=== PATIENT | male | born 1995 | race Caucasian/White ===

== ENCOUNTER 2018-02-09 11:43 | Emergency (ER) | payer OTHER ==
[2018-02-09 12:11] LABS: PLATELET COUNT 186 10^3/uL (150-400)
--- NOTE | 2018-02-09 13:05 | EDPHY ---
H & P Stated Complaint: M1 Time Seen by Provider: 02/09/18 12:56 HPI/ROS: CHIEF COMPLAINT: Depression HISTORY OF PRESENT ILLNESS: Patient is a 22-year-old man who according to the record has a history of schizophrenia but he denies this. He takes Zyprexa and ketamine he reports for depression. He texted some friends earlier today stating that he was going to "end it all" and the "where he was going they could not follow". He did not attempt any thing to harm himself. He tells me now that he is no longer feeling suicidal but he does feel depressed. He also was concerned about animals he has at home and wants to take care of. Denies any recent illness or injury. He is brought in by police and placed on an M1 hold. He tells me that he smokes some marijuana today but no other co ingestants. Severity: Moderate Modifying factors: None REVIEW OF SYSTEMS: Constitutional: denies: chills, fever, recent illness, recent injury EENTM: denies: blurred vision, double vision, nose congestion Respiratory: denies: cough, shortness of breath Cardiac: denies: chest pain, irregular heart rate, lightheadedness, palpitations Gastrointestinal/Abdominal: denies: abdominal pain, diarrhea, nausea, vomiting, blood streaked stools Genitourinary: denies: dysuria, frequency, hematuria, pain Musculoskeletal: denies: joint pain, muscle pain Skin: denies: lesions, rash, jaundice, bruising Neurological: denies: headache, numbness, paresthesia, tingling, dizziness, weakness Hematologic/Lymphatic: denies: blood clots, easy bleeding, easy bruising Immunologic/allergic: denies: HIV/AIDS, transplant 10 systems reviewed and negative except as noted EXAM: GENERAL: Well-appearing, well-nourished and in no acute distress. HEAD: Atraumatic, normocephalic. EYES: Pupils equal round and reactive to light, extraocular movements intact, sclera anicteric, conjunctiva are normal. ENT: TMs normal, nares patent, oropharynx clear without exudates. Moist mucous membranes. NECK: Normal range of motion, supple without lymphadenopathy or JVD. LUNGS: Breath sounds clear to auscultation bilaterally and equal. No wheezes rales or rhonchi. HEART: Regular rate and rhythm without murmurs, rubs or gallops. ABDOMEN: Soft, nontender, normoactive bowel sounds. No guarding, no rebound. No masses appreciated. BACK: No CVA tenderness, no spinal tenderness, step-offs or deformities EXTREMITIES: Normal range of motion, no pitting or edema. No clubbing or cyanosis. NEUROLOGICAL: Cranial nerves II through XII grossly intact. Normal speech, normal gait. 5/5 strength, normal movement in all extremities, normal sensation , normal reflexes PSYCH: Normal mood, normal affect. SKIN: Warm, dry, normal turgor, no visible rashes or lesions. Source: Patient - Personal History Current Tetanus/Diphtheria Vaccine: Unsure Current Tetanus Diphtheria and Acellular Pertussis (TDAP): Unsure - Medical/Surgical History Hx Asthma: No Hx Chronic Respiratory Disease: No Hx Diabetes: No Hx Cardiac Disease: No Hx Renal Disease: No Hx Cirrhosis: No Hx Alcoholism: No Hx HIV/AIDS: No Hx Splenectomy or Spleen Trauma: No Other PMH: SCHIZOAFFECTIVE, FRACTURE R ARM, DENSON LEGS. ADHD - Family History Significant Family History: No pertinent family hx - Social History Smoking Status: Heavy smoker Alcohol Use: Sober Drug Use: None Constitutional: Initial Vital Signs Temperature (C) 36.8 C 02/09/18 11:45 Heart Rate 73 02/09/18 11:45 Respiratory Rate 16 02/09/18 11:45 Blood Pressure 127/79 H 02/09/18 11:45 O2 Sat (%) 98 02/09/18 11:45 O2 Delivery Mode Room Air Allergies/Adverse Reactions: No Known Allergies Allergy (Verified 01/02/16 17:02) Home Medications: Medication Instructions Recorded Ekron Carbonate ER [Lithobid 300 600 mg PO DAILY #0 tab 10/08/15 mg (*)] OLANZapine DISINTEGR [ZyPREXA 5 mg PO HS #0 tab 10/08/15 ZYDIS (*)] buPROPion XL [Wellbutrin 150mg XL] 300 mg PO DAILY #0 tab 10/08/15 Disulfiram [Antabuse 250 MG (*)] 250 mg PO MWF@09 #15 tab 01/05/16 Ekron Carbonate [Ekron 600 mg PO DAILY #30 cap 01/05/16 Carbonate 600 mg cap (*)] OLANZapine DISINTEGR [ZyPREXA 5 mg PO HS #30 tab 01/05/16 ZYDIS (*)] buPROPion XL [Wellbutrin 150mg XL] 300 mg PO DAILY #30 tab 01/05/16 Medical Decision Making ED Course/Re-evaluation: The patient is no longer suicidal. Is not intoxicated. He would like to talk to mental health workers. Indication became somewhat agitated and tried to break a urine cup and cut himself. We were able to calm him down verbally. Will give him a small dose of Zyprexa. 4:45 p.m. the patient has been accepted at [facility] by Dr. Ramirez. Transfer paperwork completed. Differential Diagnosis: Partial list of the Differential diagnosis considered include but were not limited to; schizophrenia, depression, suicidality and although unlikely based on the history and physical exam, I also considered infection, head injury, substance abuse. I discussed these differential diagnoses and the plan with the patient as well as the usual and expected course. The patient understands that the diagnosis is provisional and that in medicine we are not always correct and that further workup is often warranted. Usual and customary warnings were given. All of the patient's questions were answered. The patient was instructed to return to the emergency department should the symptoms at all worsen or return, otherwise to followup with the physician as we discussed. - Data Points Laboratory Results: Laboratory Results 02/09/18 12:00 02/09/18 12:00 02/09/18 02/09/18 02/09/18 13:52 12:00 12:00 WBC 5.61 10^3/uL 10^3/uL (3.80-9.50) RBC 5.31 10^6/uL 10^6/uL (4.40-6.38) Hgb 16.2 g/dL g/dL (13.7-17.5) Hct 46.1 % % (40.0-51.0) MCV 86.8 fL fL (81.5-99.8) MCH 30.5 pg pg (27.9-34.1) MCHC 35.1 g/dL g/dL (32.4-36.7) RDW 11.9 % % (11.5-15.2) Plt Count 186 10^3/uL 10^3/uL (150-400) MPV 12.6 fL H fL (8.7-11.7) Neut % (Auto) 72.4 % % (39.3-74.2) Lymph % (Auto) 18.4 % % (15.0-45.0) Norton % (Auto) 7.7 % % (4.5-13.0) Eos % (Auto) 0.7 % % (0.6-7.6) Baso % (Auto) 0.4 % % (0.3-1.7) Nucleat RBC Rel Count 0.0 % % (0.0-0.2) Absolute Neuts (auto) 4.07 10^3/uL 10^3/uL (1.70-6.50) Absolute Lymphs (auto) 1.03 10^3/uL 10^3/uL (1.00-3.00) Absolute Monos (auto) 0.43 10^3/uL 10^3/uL (0.30-0.80) Absolute Eos (auto) 0.04 10^3/uL 10^3/uL (0.03-0.40) Absolute Basos (auto) 0.02 10^3/uL 10^3/uL (0.02-0.10) Absolute Nucleated RBC 0.00 10^3/uL 10^3/uL (0-0.01) Immature Gran % 0.4 % % (0.0-1.1) Immature Gran # 0.02 10^3/uL 10^3/uL (0.00-0.10) Sodium 140 mEq/L mEq/L (135-145) Potassium 4.5 mEq/L mEq/L (3.3-5.0) Chloride 107 mEq/L mEq/L (97-110) Carbon Dioxide 20 mEq/l L mEq/l (22-31) Anion Gap 13 mEq/L mEq/L (6-14) BUN 16 mg/dL mg/dL (7-23) Creatinine 1.2 mg/dL mg/dL (0.7-1.3) Estimated GFR > 60 Glucose 85 mg/dL mg/dL (70-100) Calcium 9.8 mg/dL mg/dL (8.5-10.4) Salicylates < 1.0 mg/dL L mg/dL (2.0-20.0) Urine Opiates Screen NEGATIVE (NEGATIVE) Acetaminophen < 10 mcg/mL L mcg/mL (10-30) Urine Barbiturates NEGATIVE (NEGATIVE) Ur Phencyclidine Scrn NEGATIVE (NEGATIVE) Ur Amphetamine Screen NEGATIVE (NEGATIVE) U Benzodiazepines Scrn NEGATIVE (NEGATIVE) Ekron < 0.2 mEq/L L mEq/L (0.6-1.2) Urine Cocaine Screen NEGATIVE (NEGATIVE) U Marijuana (THC) Screen NON-NEGATIVE H (NEGATIVE) Ethyl Alcohol < 10 mg/dL mg/dL (0-10) Medications Given: Discontinued Medications Nicotine (Nicoderm Cq) 14 mg TD EDNOW ONE Stop: 02/09/18 13:34 Last Admin: 02/09/18 13:35 Dose: Not Given Nicotine (Nicoderm Cq) 21 mg TD EDNOW ONE Stop: 02/09/18 13:36 Last Admin: 02/09/18 13:35 Dose: 21 mg Olanzapine (Olanzapine) 5 mg PO ONCE ONE Stop: 02/09/18 13:24 Last Admin: 02/09/18 13:32 Dose: 5 mg Departure - Departure Disposition: Other Psych, Not [facility] Clinical Impression: Suicidal ideation Condition: Fair Referrals: NONE *PRIMARY CARE P,. [Primary Care Provider] - As per Instructions
[2018-02-09] MEDS ORDERED: OLANZapine 5 MG TAB ONE (13:22)
[2018-02-09] MEDS ORDERED: OLANZapine 5 MG TAB PO ONE (13:23)
[2018-02-09] MEDS ORDERED: NICOTINE 14 MG/24 HR PATCH TD ONE (13:33)
[2018-02-09] MEDS ORDERED: NICOTINE 21 MG/24 HR PATCH TD ONE ×2 (13:34→13:35)
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
[2018-02-09 16:49] VITALS: BP 120/77
--- NOTE | 2018-02-09 22:29 | ASMTTCLDSP ---
TLC Discharge Disposition Disposition: Answers: Transfer Disposition Notes: Notes: In consultation with [facility] ED physician, Bret Briseno MD and on-call psychiatrist, Donn Rodriguez MD, both concurred that pt appears to meet 27-65 criteria requiring psychiatric hospitalization as pt appears to be at risk of harm to self due to a mental illness condition Was patient given the Answers: Not applicable Inpatient Behavioral Health Prohibited Belongings List while in the ED? Type of Hold: Answers: M1/72-hour Hold Hold initiated by: Answers: Police For Transfers, Accepting [place] Facility: For Transfers, Accepting Dr. Biswas Psychiatrist: For Transfers, Reason No beds available Patient is Being Transferred: Date Signed: 02/09/2018 10:28 PM Electronically Signed By:Todd Pendleton
== END 2018-02-09 17:25 ==
DX: R45.851 Suicidal ideations (principal); F25.9 Schizoaffective disorder, unspecified; R45.1 Restlessness and agitation; F17.200 Nicotine dependence, unspecified, uncomplicated
CPT/HCPCS: 80305; G0480

== ENCOUNTER 2018-08-01 23:20 | Emergency (ER) | payer OTHER ==
[2018-08-02] MEDS ORDERED: TDAP ADULT 0.5 ML INJ (BOOSTRIX) IM ONE (00:05)
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
[2018-08-02 00:10] LABS: PLATELET COUNT 217 10^3/uL (150-400)
[2018-08-02 10:09] VITALS: BP 128/78
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
--- NOTE | 2018-08-02 13:09 | ASMTTCLDSP ---
TLC Discharge Disposition Disposition: Answers: Discharge If Answers: Yes DISCHARGED: Patient/family given suicide hotline info & SAMHSA brochure? Disposition Notes: Notes: Pt will return home. [facility]. Discharge Concerns/Recommendations: Notes: In consultation with [facility] ED physician, Austin Olvera MD, and Community therapist, Bharat Barker, both concurred that pt does not appear to meet 27-65 criteria requiring psychiatric hospitalization as pt does not appear to be an imminent risk of harm to self/others/gravely disabled due to a mental illness condition. Dr. Olvera vacated M1 hold. Psychiatrist vacating M1 Dr Austin Olvera MD Hold: Date and time M1 hold 08/02/2018 09:40 AM vacated (time format is hh:mm): Type of Hold: Answers: M1/72-hour Hold Hold initiated by: Answers: Police Date Signed: 08/02/2018 01:08 PM Electronically Signed By:Kathryn Anderson
== END 2018-08-02 10:09 | disposition home or self-care (01) ==
DX: R45.851 Suicidal ideations (principal); S51.802A Unspecified open wound of left forearm, initial encounter; F32.9 Major depressive disorder, single episode, unspecified; F25.9 Schizoaffective disorder, unspecified; Z23 Encounter for immunization; X78.1XXA Intentional self-harm by knife, initial encounter
CPT/HCPCS: 80305; G0480

== ENCOUNTER 2018-08-24 23:26 | Emergency (ER) | payer OTHER ==
--- NOTE | 2018-08-24 23:46 | EDPHY ---
H & P Stated Complaint: selfharm and HI Source: Patient - Personal History Current Tetanus/Diphtheria Vaccine: Yes Current Tetanus Diphtheria and Acellular Pertussis (TDAP): Yes Tetanus Vaccine Date: 2018 - Medical/Surgical History Hx Asthma: No Hx Chronic Respiratory Disease: No Hx Diabetes: No Hx Cardiac Disease: No Hx Renal Disease: No Hx Cirrhosis: No Hx Alcoholism: No Hx HIV/AIDS: No Hx Splenectomy or Spleen Trauma: No Other PMH: SCHIZOAFFECTIVE, FRACTURE R ARM, DENSON LEGS. ADHD - Social History Smoking Status: Heavy smoker Time Seen by Provider: 08/24/18 23:46 HPI/ROS: HPI CHIEF COMPLAINT: Suicidal ideation, self-harm, cutting HISTORY OF PRESENT ILLNESS: This patient is a 23-year-old male, he has a history of bipolar disorder, depression, presents emergency room for suicidal ideation. Patient states he is feeling very depressed, does not want live anymore, states he suicidal, he cut his arm left forearm superficially. He also has thoughts of harming other people. Past Medical History: Significant medical history for bipolar disorder, schizoaffective disorder, depression Past Surgical History: No recent surgical history Social History: Endorses alcohol, drugs, tobacco, marijuana. States I "do every drug I can get my hands on" works at a [employer]. Was previously [employer] student but dropped out. From [place]. Family History: Noncontributory ROS REVIEW OF SYSTEMS: 10 Systems were reviewed and negative with the exception of the elements mentioned in the history of present illness. Exam Constitutional triage nursing summary reviewed, vital signs reviewed, awake/ alert. Eyes normal conjunctivae and sclera, EOMI, PERRLA. HENT normal inspection, atraumatic, moist mucus membranes, no epistaxis, neck supple/ no meningismus, no raccoon eyes. Respiratory clear to auscultation bilaterally, normal breath sounds, no respiratory distress, no wheezing. Cardiovascular rate normal, regular rhythm, no murmur, no edema, distal pulses normal. Gastrointestinal soft, non-tender, no rebound, no guarding, normal bowel sounds, no distension, no pulsatile mass. Genitourinary no CVA tenderness. Musculoskeletal no midline vertebral tenderness, full range of motion, no calf swelling, no tenderness of extremities, no meningismus, good pulses, neurovascularly intact. Skin pink, warm, & dry, no rash, skin atraumatic. Neurologic awake, alert and oriented x 3, AAOx3, moves all 4 extremities equally, motor intact, sensory intact, CN II-XII intact, normal cerebellar, normal vision, normal speech. Psychiatric depressed, suicidal, homicidal. Flat affect. Heme/Lymph/Immune no lymphadenopathy. Differential Diagnosis: Includes but is not limited to in a particular order depression, mood disorder, suicidal ideation, bipolar disorder, drug intoxication, alcohol intoxication Medical Decision Making: Plan for this patient IV establishment blood draw, medical clearance, MIH, will need mental health evaluation. Re-evaluation: Patient placed on [place] H. Patient need blood draw for medical clearance. 4:56 a.m. labs reviewed. Patient on MIH. Patient was suicidal ideation. Depression. Plan for mental health evaluation this morning. Patient re-evaluated 7:07 a.m. Resting comfortably no acute distress. Plan for Mental Health eval. Signed over to Dr. Luevano 7am. ([place]) Constitutional: Initial Vital Signs Temperature (C) 36.5 C 08/24/18 23:27 Heart Rate 92 08/24/18 23:27 Respiratory Rate 16 08/24/18 23:27 Blood Pressure 117/71 08/24/18 23:27 O2 Sat (%) 94 08/24/18 23:27 O2 Delivery Mode Room Air Allergies/Adverse Reactions: No Known Allergies Allergy (Verified 08/24/18 23:30) Home Medications: Medication Instructions Recorded OLANZapine DISINTEGR [ZyPREXA 5 mg PO HS #30 tab 01/05/16 ZYDIS (*)] Divalproex ER [Depakote ER 500 MG 08/01/18 (*)] Ketamine IH 08/01/18 Medical Decision Making Other Provider: Care assumed at 6:40 a.m. For this patient who is on a mental health hold for depression and suicidal ideation. Discharge summary dated 01/06/2016 states possible depression with psychotic features versus schizoaffective disorder by history. Plan for mental health evaluation this morning. Signed out to Suzanna at 1500 with psychiatric evaluation in progress. (Dereck Luevano) 3:15 p.m. the patient's evaluation is complete. They feel that he can be discharged. He is denying suicidal homicidal ideations currently. There is some thought that he was here under falls pre tense malingering for fci. Will discharge. He will follow up with his mental health counselor. (Bret Briseno) - Data Points Laboratory Results: Laboratory Results 08/25/18 00:05 08/25/18 00:05 Medications Given: Discontinued Medications Ondansetron HCl (Zofran Odt) 4 mg PO EDNOW ONE Stop: 08/25/18 14:23 Last Admin: 08/25/18 14:31 Dose: 4 mg Departure - Departure Disposition: Home, Routine, Self-Care Clinical Impression: Schizoaffective disorder Qualifiers: Schizoaffective disorder type: unspecified Qualified Code(s): F25.9 - Schizoaffective disorder, unspecified Condition: Good Instructions: Suicide Prevention (ED) Referrals: aLuren Ackerman MD [Medical Doctor] - As per Instructions [facility],. [Clinic] - 1-2 days without fail
[2018-08-25 00:20] LABS: PLATELET COUNT 218 10^3/uL (150-400)
[2018-08-25] MEDS ORDERED: ONDANSETRON DISINTEGRATING 4 MG TAB PO ONE (14:22)
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
--- NOTE | 2018-08-25 15:27 | ASMTTCLDSP ---
TLC Discharge Disposition Disposition: Answers: Discharge If Answers: Yes DISCHARGED: Patient/family given suicide hotline info & [facility] brochure? Disposition Notes: Notes: Pt discharged Discharge Concerns/Recommendations: Notes: In consultation with [facility] ED physician, Bret Briseno MD, and on-call psychiatrist, Donn Rodriguez MD, and pt's therapist Bharat Barker, all concurred that pt does not appear to meet 27-65 criteria requiring psychiatric hospitalization as pt does not appear to be an imminent risk of harm to self/others/gravely disabled due to a mental illness condition. Pt stated commitment or ability to keep self safe, denied thoughts of self harm or harm to others. Pt was given local hotline information and [facility] brochure After an Attempt and encouraged to follow up with [facility] treatment team, including his therapy appointment with Bharat Barker tomorrow at noon. Was patient given the Answers: Not applicable Inpatient Behavioral Health Prohibited Belongings List while in the ED? Date Signed: 08/25/2018 03:27 PM Electronically Signed By:Mendy Calle
[2018-08-25 15:38] VITALS: BP 127/78
== END 2018-08-25 15:38 | disposition home or self-care (01) ==
LOC: EEVIPCON 23:26
PROC: GZ11ZZZ Psychological Tests, Personality and Behavioral (ICD-10-PCS; principal; 2018-08-24)
DX: F25.9 Schizoaffective disorder, unspecified (principal); S51.812A Laceration without foreign body of left forearm, initial encounter; X78.9XXA Intentional self-harm by unspecified sharp object, initial encounter
CPT/HCPCS: 80305; G0480